=== PATIENT | female | born 1985 | race Hispanic/Latino ===

== ENCOUNTER 2019-01-29 02:09 | Emergency (ER) | payer OTHER ==
[2019-01-29 02:15] VITALS: BP 101/61; PULSE 70; RESP 17; TEMP 98.5; O2SAT 100
--- NOTE | 2019-01-29 02:58 | ED PDOC ---
HPI: Abdomen Time Seen by Provider: 01/29/19 02:14 Chief Complaint (Nursing): Abdominal Pain History Per: Patient Onset/Duration Of Symptoms: Days Outside of [place] travel?: No Location Of Pain/Discomfort: Diffuse Additional Complaint(s): 33 year old with PMHx of pancreatitis (according to patient, this is secondary to gastric bypass 4 years ago) presenting with abdominal pain x 4 days, also with L hand injury 2 days ago. States that she has diffuse R and L sided abdominal pain associated with some nausea, but no vomiting, diarrhea, constipation, gas, fevers. States she has had some chills. No back pain, weight loss. States she broke her "metacarpal" two days ago, went to urgent care and was splinted but was not given referral to hand or ortho. When asked what medications patient takes daily, she reports "none". PMD: Dr. Fabian Past Medical History Reviewed: Historical Data, Nursing Documentation, Vital Signs Vital Signs: Last Vital Signs Temp 98.5 F 01/29/19 02:12 Pulse 70 01/29/19 02:12 Resp 17 01/29/19 02:12 BP 101/61 01/29/19 02:12 Pulse Ox 100 01/29/19 02:12 - Medical History PMH: Asthma, Gastritis, Gall Bladder Disease - Surgical History Surgical History: Cholecystectomy - Family History Family History: States: Unknown Family Hx - Allergies Allergies/Adverse Reactions: Allergies Allergy/AdvReac Type Severity Reaction Status Date / Time NSAIDS (Non-Steroidal Allergy RASH Verified 01/29/19 02:16 Anti-Inflamma Penicillins Allergy RASH Verified 01/29/19 02:16 Review of Systems ROS Statement: Except As Marked, All Systems Reviewed And Found Negative Gastrointestinal: Positive for: Abdominal Pain Musculoskeletal: Positive for: Hand Pain Physical Exam - Reviewed Nursing Documentation Reviewed: Yes Vital Signs Reviewed: Yes - Physical Exam Appears: Positive for: Well, Non-toxic, No Acute Distress Head Exam: Positive for: ATRAUMATIC, NORMAL INSPECTION, NORMOCEPHALIC Skin: Positive for: Normal Color, Warm, DRY Eye Exam: Positive for: EOMI, Normal appearance, PERRL ENT: Positive for: Normal ENT Inspection Neck: Positive for: Normal, Painless ROM Cardiovascular/Chest: Positive for: Regular Rate, Rhythm Respiratory: Positive for: CNT, Normal Breath Sounds Gastrointestinal/Abdominal: Positive for: Normal Exam, Soft, Tenderness (Mid left and right sided quadrant pain). Negative for: Distended, Guarding, Rebound Back: Positive for: Normal Inspection Extremity: Positive for: Normal ROM Neurological/Psych: Positive for: Awake, Alert, Normal Tone - ECG O2 Sat by Pulse Oximetry: 100 Pulse Ox Interpretation: Normal Medical Decision Making Medical Decision Makin33 year old presenting with vague abdominal pain --Very well appearing with stable vitals, walking around E.D. without any difficulty whatsoever --Differential includes: gas, constipation, UTI, less likely pancreatitis, obstruction, diverticular disease, colitis --Plan: labs, abd x-ray, x-ray of hand, re-splinting of hand -- [facility] found the following prescriptions: 01/27/2019 3 01/27/2019 OXYCODONE-ACETAMINOPHEN 5-325 20.0 5 ROSALINA TANNER [id number] HUDAC ([id number]) 0 30.0 MME Comm [facility] 01/25/2019 2 01/20/2019 ZOLPIDEM TARTRATE 5 MG TABLET 30.0 30 MA ANNE [id number] JOURN ([id number]) 0 Comm [facility] 01/20/2019 2 01/20/2019 GABAPENTIN 600 MG TABLET 90.0 30 MA ANNE [id number] JOURN ([id number]) 0 Comm [facility] 01/13/2019 3 01/13/2019 BUPRENORPHIN-NALOXON 8-2 MG SL 45.0 15 ROSALINA TANNER [id number] HUDAC (5248) 0 24.0 mg Comm [facility] 01/10/2019 3 01/10/2019 OXYCODONE-ACETAMINOPHEN 5-325 10.0 3 ROSALINA TANNER [id number] HUDAC (5248) 0 25.0 MME Comm [facility] 01/07/2019 5 01/07/2019 CARISOPRODOL 350 MG TABLET 60.0 30 MA ANNE [id number] [facility]AL[facility] ([id number]) 0 [facility] [place] 01/07/2019 5 01/07/2019 ALPRAZOLAM 1 MG TABLET 90.0 30 MA ANNE [id number] WALGR (3566) 0 Comm [facility] 01/07/2019 4 12/11/2018 ZOLPIDEM TARTRATE 10 MG TABLET 30.0 30 MA ANNE [id number] SV PH ([id number]) 1 Comm [facility] 01/06/2019 4 01/06/2019 TRAMADOL HCL 50 MG TABLET 12.0 3 FR LIP [id number] SV [facility] ([id number]) 0 20.0 MME [facility] [place] 01/06/2019 4 12/11/2018 GABAPENTIN 400 MG CAPSULE 90.0 30 MA ANNE [id number] [facility] ([id number]) 1 [facility] [place] 12/30/2018 5 12/30/2018 ZOLPIDEM TARTRATE 5 MG TABLET 30.0 30 MA ANNE [id number] [facility] (5699) 0 [facility] [place] 12/29/2018 5 12/27/2018 OXYCODONE HCL 5 MG TABLET 20.0 3 ROSALINA TANNER [id number] [facility] (5699) 0 50.0 MME [facility] [place] 12/29/2018 5 12/27/2018 BUPRENORPHIN-NALOXON 8-2 MG SL 45.0 15 ROSALINA TANNER [id number] [facility] (5699) 0 24.0 mg [facility] [place] 12/28/2018 5 10/02/2018 GABAPENTIN 300 MG CAPSULE 90.0 30 MA ANNE [id number] [facility]AL[facility] ([id number]) 2 [facility] [place] 12/24/2018 4 12/24/2018 OXYCODONE-ACETAMINOPHEN 5-325 30.0 8 VT GEOVANI [id number] SV [facility] ([id number]) 0 28.13 MME [facility] [place] 12/18/2018 7 12/18/2018 OXYCODONE-ACETAMINOPHEN 5-325 30.0 5 MA ANNE [id number] COMMU (1471) 0 45.0 MME Private Pay [place] MARY STERLING, : 1985, Created On: 01/29/2019 Filled ID Written Drug QTY Days Prescriber Rx # Pharmacy* Refills Daily Dose Pymt Type [employer] 12/16/2018 4 12/13/2018 BUPRENORPHIN-NALOXON 8-2 MG SL 45.0 15 ROSALINA TANNER [id number] [facility] ([id number]) 0 24.0 mg [facility] [place] 12/11/2018 4 12/11/2018 ALPRAZOLAM 1 MG TABLET 90.0 30 MA ANNE [id number] [facility] ([id number]) 0 [facility] [place] 12/11/2018 4 12/11/2018 GABAPENTIN 400 MG CAPSULE 90.0 30 MA ANNE [id number] [facility] ([id number]) 0 [facility] [place] 12/11/2018 4 12/11/2018 ZOLPIDEM TARTRATE 10 MG TABLET 30.0 30 MA ANNE [id number] [facility] ([id number]) 0 [facility] [place] 12/11/2018 4 12/11/2018 CARISOPRODOL 350 MG TABLET 60.0 30 MA ANNE [id number] [facility] ([id number]) 0 [facility] [place] 12/02/2018 3 11/29/2018 BUPRENORPHIN-NALOXON 8-2 MG SL 45.0 15 ROSALINA TANNER [id number] HUDAC (5248) 0 24.0 mg [facility] [place] 11/26/2018 5 10/02/2018 GABAPENTIN 300 MG CAPSULE 90.0 30 MA ANNE [id number] [facility] (5699) 1 [facility] [place] 11/25/2018 3 11/22/2018 BUPRENORPHIN-NALOXON 8-2 MG SL 20.0 8 ROSALINA TANNER [id number] HUDAC (5248) 1 20.0 mg [facility] [place] 11/22/2018 3 11/22/2018 BUPRENORPHIN-NALOXON 8-2 MG SL 5.0 2 ROSALINA TANNER [id number] HUDAC (5248) 0 20.0 mg [facility] [place] 11/18/2018 3 11/18/2018 BUPRENORPHIN-NALOXON 8-2 MG SL 4.0 2 ROSALINA TANNER [id number] HUDAC (5248) 0 16.0 mg [facility] [place] 11/15/2018 4 11/15/2018 ZOLPIDEM TARTRATE 10 MG TABLET 30.0 30 MA ANNE [id number] [facility] (8083) 0 [place] [facility] [place] 11/15/2018 4 11/15/2018 CARISOPRODOL 350 MG TABLET 60.0 30 MA ANNE [id number] [facility] ([id number]) 0 [place] [facility] [place] 11/12/2018 4 11/12/2018 GABAPENTIN 800 MG TABLET 90.0 30 VT GEOVANI [id number] [facility] ([id number]) 0 [place] [facility] [place] 11/12/2018 4 11/12/2018 ALPRAZOLAM 1 MG TABLET 90.0 30 [place] GEOVANI [id number] [facility] (8083) 0 [place] seen on [place] [facility], patient has been prescribed 110 tablets of Oxycodone since the beginning of this month alone in addition to several other controlled substances. 230 --Patient left E.R. before treatment was completed, was heard complaining that she was not being given pain medication timely despite discussion with patient that medications will be administered and targeted towards specific abnormalities found during workup. Disposition - Clinical Impression Clinical Impression: Abdominal pain - Patient ED Disposition Is Patient to be Admitted: No - Disposition Disposition: Against Medical Advice Disposition Time: 02:30 Condition: UNKNOWN
[2019-01-29 02:59] LABS: BASO # 0.1 K/uL (0.0-0.2); BASO % 0.9 % (0.0-2.0); EOS # 0.3 K/uL (0.0-0.7); EOS % 4.9 % (0.0-4.0); HEMOGLOBIN 8.9 g/dL (12.0-16.0); LYMPH # 1.8 K/uL (1.0-4.3); LYMPH % 27.2 % (20.0-40.0); MEAN CELL VOLUME 73.2 fl (81.0-99.0); MEAN CORPUSCULAR HEMOGLOBIN 23.2 pg (27.0-31.0); MEAN CORPUSCULAR HGB CONC 31.7 g/dL (33.0-37.0); MEAN PLATELET VOLUME 8.3 fl (7.2-11.7); MONO # 0.5 K/uL (0.0-0.8); MONO % 8.1 % (0.0-10.0); NEUT # 3.9 K/uL (1.8-7.0); NEUT % 58.9 % (50.0-75.0); RBC 3.85 Mil/uL (3.80-5.20); RED CELL DISTRIBUTION WIDTH 19.6 % (11.5-14.5); WHITE BLOOD COUNT 6.7 K/uL (4.8-10.8)
[2019-01-29 03:07] LABS: ALB/GLOB RATIO 1.3 (1.0-2.1); ALT/SGPT 82 U/L (9-52); AST/SGOT 76 U/L (14-36); BLOOD UREA NITROGEN 9 mg/dl (7-17); CALCIUM 9.2 mg/dL (8.4-10.2); GFR NON-AFRICAN AMERICAN > 60; LIPASE 318 U/L (23-300)
== END 2019-01-29 03:12 | disposition left against medical advice (07) ==
LOC: H.ER 02:09
DX: R10.9 Unspecified abdominal pain (principal)